=== PATIENT | male | born 1995 | race Caucasian/White ===

== ENCOUNTER 2022-01-05 20:50 | Emergency (ER) | payer OTHER, SELFPAY ==
--- NOTE | ~2022-01-05 | XR_ITS ---
EXAMINATION: XR knee RT min 4V DATE: 01/05/2022 21:33 INDICATION: Right knee pain TECHNIQUE: Four views of the right knee were obtained. COMPARISON: None. FINDINGS: Alignment is normal. No fracture or osteochondral lesion. Joint spaces are normal with no e rosions. There is a moderate-sized right knee joint effusion. Soft tissues are unremarkable. IMPRESSION: 1. Moderate size knee joint effusion. Reviewed, dictated and finalized at location F.
[2022-01-05 21:12] VITALS: BP 143/90; PULSE 109; RESP 18; TEMP 36.9; O2SAT 98
--- NOTE | 2022-01-05 22:13 | ED.LOWEXIN ---
HPI - Extremity Injury (Lower) General Chief Complaint: Extremity Injury, Lower Stated Complaint: knee popped while running Time Seen by Provider: 01/05/22 21:19 Source: patient Mode of arrival: ambulatory Limitations: no limitations History of Present Illness HPI Narrative: This is a 26-year-old male that presents to the emergency department for right knee pain after an injury today. Reports he was playing softball and felt a pop in the knee. Reports pain and feeling like the knee is unstable with ambulation. Denies decreased range of motion or numbness. Related Data Allergies Allergy/AdvReac Type Severity Reaction Status Date / Time No Known Allergies Allergy Unverified 04/11/11 10:43 Review of Systems Review of Systems: CONSTITUTIONAL: Denies fever MUSCULOSKELETAL: Reports joint pain, and myalgia. NEUROLOGIC: Denies numbness All systems reviewed & are unremarkable except as noted in HPI and below PMFSH Past Medical History Medical History (Updated 01/05/22 @ 23:01 by Aida Thorpe PA-C) No active medical problems Social History Social History (Updated 01/05/22 @ 22:16 by Aida Thorpe PA-C) Substance use: never Exam Narrative: GENERAL: Well-appearing, well-nourished, and in no acute distress. HEAD: Normocephalic, atraumatic. EYES: EOMI. EXTREMITIES: Normal range of motion. Mild edema about the right knee anteriorly. Normal DP pulse. Normal sensation SKIN: Warm, dry, no rash. NEURO: No focal deficits. Alert and oriented x3. PSYCH: Normal mood and affect Course Vital Signs Vital signs: Vital Signs Temperature 98.5 F 01/05/22 21:12 Pulse Rate 109 H 01/05/22 21:12 Respiratory Rate 18 01/05/22 21:12 Blood Pressure 143/90 H 01/05/22 21:12 Pulse Oximetry 98 01/05/22 21:12 Oxygen Delivery Room Air 01/05/22 21:12 Temperature 98.5 F 01/05/22 21:12 Pulse Rate 109 H 01/05/22 21:12 Respiratory Rate 18 01/05/22 21:12 Blood Pressure 143/90 H 01/05/22 21:12 Pulse Oximetry 98 01/05/22 21:12 Oxygen Delivery Room Air 01/05/22 21:12 MDM - Extremity Injury (Lower) MDM Narrative Medical decision making narrative: Patient presents to the emergency department for right knee injury sustained just prior to arrival. He is neurovascularly intact. Right knee x-ray shows a moderate sized joint effusion. Patient placed in knee immobilizer and given crutches. Will be given follow-up with orthopedics. He was given warnings to return to the ER Imaging Data Radiologist's impression: ITS Impressions Knee X-Ray 01/05/22 21:43 IMPRESSION: 1. Moderate size knee joint effusion. Critical Care Time Critical Care Time Critical Care Time: No Discharge Plan Discharge Clinical Impression: Acute internal derangement of knee Qualifiers: Laterality: right Qualified Code(s): M23.91 - Unspecified internal derangement of right knee Patient Disposition: Home, Self-Care Condition: Stable Instructions: Knee Sprain (ED) Additional Instructions: Return to the emergency department if you experience fever, redness and swelling of your leg, numbness, or any other symptoms that are concerning to you Wear knee immobilizer and use crutches. No weight on the affected leg. Ice and elevate extremity. Pain medication as needed and directed. Follow up with orthopedics for further care. Follow-up/Referrals: Jayro,MD Blair [Primary Care Provider] - Ignacio Weller MD [Physician] - 1 Week
== END 2022-01-05 23:07 | disposition home or self-care (01) ==
PROVIDERS: Emergency Provider Emergency Medicine; PCP Internal Medicine
DX: M23.91 Unspecified internal derangement of right knee (principal); S89.91XA Unspecified injury of right lower leg, initial encounter; X50.9XXA Other and unspecified overexertion or strenuous movements or postures, initial encounter
CPT/HCPCS: 73564; 99283